=== PATIENT | female | born 1945 | race Two or more races ===

== ENCOUNTER 2017-05-26 22:03 | Emergency (ER) | payer MEDICAID, OTHER ==
[~2017-05-26] VITALS: Ht 160 cm; Wt 73.0 kg
[~2017-05-26 22:03] MED LIST: ASP81EC PO; Atorvastatin Calcium PO; CAR3125T PO; CLOP75TA28 PO; ENA2.5T PO; SPIR25TA88 PO
[2017-05-26] MEDS ORDERED: cloNIDine HCL 0.1 MG TAB ONE (22:12)
[2017-05-26] MEDS ORDERED: cloNIDine HCL 0.1 MG TAB PO ONE (22:30)
[2017-05-26 22:39] LABS: Basophils # (auto) 0.1 uL; Basophils % (auto) 0.8 % (0.0-2.0); Eosinophils # (auto) 0.2 uL; Eosinophils % (auto) 2.1 % (0.0-7.0); Hematocrit 45.7 % (36.0-46.0); Hemoglobin 15.1 g/dL (12.2-16.2); Lymphocytes # (auto) 2.2 uL; Lymphocytes % (auto) 22.4 % (10.0-50.0); Mean Corpuscular Hemoglobin 27.6 pg (28.0-32.0); Mean Corpuscular Volume 83.6 fL (80.0-100.0); Mean Platelet Volume 7.7 fL (6.9-10.8); Monocytes # (auto) 1.1 uL; Monocytes % (auto) 11.2 % (0.0-12.0); Neutrophils # (auto) 6.2 uL; Neutrophils % (auto) 63.5 % (37.0-80.0); Nucleated Red Blood Cells % 0.1 %; Platelet Count (auto) 296 10^3/uL (140-450); Red Cell Distribution Width 13.8 % (11.8-14.3); White Blood Cell 9.7 10^3/uL (4.4-10.8)
[2017-05-26 22:53] LABS: INR 0.97 (0.9-1.15); Partial Thromboplastin Time 25.4 sec (22.64-33.71); Prothrombin Time 10.6 sec (9.37-12.3)
[2017-05-26 22:58] LABS: Albumin 3.2 g/dL (3.4-5.0); BUN/Creatinine Ratio 20.1; Calcium 8.7 mg/dL (8.5-10.1); Magnesium 2.2 mg/dL (1.6-2.6); Potassium 4.4 mmol/L (3.5-5.1)
[2017-05-26 23:03] LABS: Bilirubin, Total 0.4 mg/dL (0.2-1.0); Total Protein 8.5 g/dL (6.4-8.2)
[2017-05-27 05:55] LABS: Urine Bilirubin Negative (Negative); Urine Blood TRACE /uL (Negative); Urine Color Yellow (Yellow); Urine Glucose Normal (Normal); Urine Ketone Negative (Negative); Urine Mucus FEW (None Seen); Urine Nitrite Negative (Negative); Urine RBC 2 /hpf (0 - 4); Urine Squamous Epithelial Cell FEW /hpf (<5); Urine Urobilinogen Normal (Negative)
[2017-05-27] MEDS ORDERED: IOHEXOL 350 MG/ML 100ML IJ ONE (07:52)
[2017-05-27 09:11] VITALS: BP 135/80
== END 2017-05-27 13:20 | disposition home or self-care (01) ==
LOC: ER 22:03
DX: R04.0 Epistaxis (principal); N39.0 Urinary tract infection, site not specified; R42 Dizziness and giddiness; I12.9 Hypertensive chronic kidney disease with stage 1 through stage 4 chronic kidney disease, or unspecified chronic kidney disease; N18.9 Chronic kidney disease, unspecified; I25.10 Atherosclerotic heart disease of native coronary artery without angina pectoris; Z88.6 Allergy status to analgesic agent; Z79.899 Other long term (current) drug therapy
CPT/HCPCS: 36415; 70450; 71275; 80053; 81001; 83735; 84484; 85025; 85379; 85610; 85730; 93005; 99285; Q9967

== ENCOUNTER 2019-04-21 23:30 | Inpatient (IN) | payer MEDICAID ==
[~2019-04-21] VITALS: Ht 162.6 cm; Wt 76.2 kg
[~2019-04-21 23:30] MED LIST changes: -ENA2.5T PO; +ENAL2.5T2 PO
[2019-04-22 00:30] LABS: Basophils # (auto) 0.1 uL; Basophils % (auto) 0.5 % (0.0-2.0); Eosinophils # (auto) 0.1 uL; Eosinophils % (auto) 1.2 % (0.0-7.0); Hematocrit 44.2 % (36.0-46.0); Hemoglobin 14.7 g/dL (12.2-16.2); Lymphocytes # (auto) 1.6 uL; Lymphocytes % (auto) 12.7 % (10.0-50.0); Mean Corpuscular Hemoglobin 27.4 pg (28.0-32.0); Mean Corpuscular Hgb Conc. 33.2 g/dL (32.0-36.0); Mean Corpuscular Volume 82.4 fL (80.0-100.0); Monocytes # (auto) 0.8 uL; Monocytes % (auto) 6.2 % (0.0-12.0); Neutrophils % (auto) 79.4 % (37.0-80.0); Nucleated Red Blood Cells % 0.1 %; Platelet Count (auto) 317 10^3/uL (140-450); Red Blood Cells 5.36 10^6/uL (4.0-5.20); Red Cell Distribution Width 14.4 % (11.8-14.3); White Blood Cell 12.6 10^3/uL (4.4-10.8)
[2019-04-22 00:46] LABS: Albumin 3.1 g/dL (3.4-5.0); BUN/Creatinine Ratio 14.2; Calcium 8.9 mg/dL (8.5-10.1); Potassium 3.8 mmol/L (3.5-5.1)
[2019-04-22 00:48] LABS: Bilirubin, Total 0.2 mg/dL (0.2-1.0); Total Protein 8.4 g/dL (6.4-8.2)
[2019-04-22] MEDS ORDERED: SODIUM CHLORIDE 0.9% 500 ML IV ONE (01:15)
[2019-04-22] MEDS ORDERED: ONDANSETRON HCL 4 MG/2 ML VIAL IV ONE (01:15)
[2019-04-22] MEDS ORDERED: MORPHINE SULFATE 4 MG/ML SYR/VIAL IV ONE (01:15)
[2019-04-22 01:47] LABS: Urine Bacteria FEW /hpf (None Seen); Urine Blood 2+ /uL (Negative); Urine Specific Gravity 1.015 (1.001-1.035); Urine WBC 261 /hpf (0 - 5); Urine WBC Clumps PRESENT /hpf (None Seen)
[2019-04-22 01:55] LABS: INR 0.97 (0.9-1.15); Partial Thromboplastin Time 26.2 sec (23.64-32.05)
[2019-04-22] MEDS ORDERED: PROMETHAZINE HCL 25 MG/ML 1ML IV ONE (04:00)
[2019-04-22] MEDS ORDERED: DEXTROSE (50%) 50ML SYRG IV PRN (06:00)
[2019-04-22] MEDS ORDERED: TEMAZEPAM 15 MG CAP PO PRN (06:00)
[2019-04-22] MEDS ORDERED: ONDANSETRON HCL 4 MG/2 ML VIAL IV PRN (06:00)
[2019-04-22] MEDS ORDERED: cloNIDine HCL 0.1 MG TAB PO PRN (06:00)
[2019-04-22] MEDS ORDERED: MORPHINE SULF INJ 2 MG/ML SYRINGE 1ML IV PRN (06:00)
[2019-04-22 09:30] VITALS: BP 142/91
--- NOTE | 2019-04-22 09:30 | NUR ---
MED/SURG admit MILA FIGUEROA admitted to MED/SURG unit. Patient oriented to LICO ANTUNEZ RN primary RN, unit, room, bed, and unit policies regarding patient care and visiting hours. Pt alert and oriented x4. No s/s of distress or SOB noted. Pt rated pain at 3/10 and denies any need for pain medication at this time. Bed in lowest and locked position with side rails up x2 and call light in reach. Encouraged to call if they need something. All questions and concerns addressed, patient verbalized understanding.
[2019-04-22 10:00] VITALS: BP 162/94
[2019-04-22] MEDS: CLOPIDOGREL BISULFATE 75 MG TAB PO SCH (10:00)
[2019-04-22] MEDS ORDERED: ENALAPRIL MALEATE 2.5 MG TAB PO SCH (10:00)
[2019-04-22] MEDS ORDERED: hydrALAZINE HCL 20 MG/ML VL IV PRN (10:15)
[2019-04-22] MEDS ORDERED: TAMSULOSIN HYDROCHLORIDE 0.4 MG CAP PO ONE (10:15)
--- NOTE | 2019-04-22 10:30 | NUR ---
IV removal RIGHT AC IV DC'd with clean sterile technique, catheter fully intact. Pressure dressing applied to site. Patient tolerated well.
--- NOTE | 2019-04-22 11:30 | NUR ---
IV insertion IV access obtained, via clean sterile technique by inserting 20 gauge catheter at RIGHT WRIST after 2 attempt(s). IV secured properly. No trauma to site. Patient tolerated well.
[2019-04-22] MEDS: ASPirin 81 mg TAB PO SCH (11:35)
[2019-04-22] MEDS: cefTRIAXone 1GM/50ML D5W 50 ML IV SCH (11:35)
[2019-04-22] MEDS: PANTOPRAZOLE 40 MG TAB PO SCH (11:36)
[2019-04-22] MEDS: CARVEDILOL 3.125 MG TAB PO SCH ×2 (11:36→21:23)
[2019-04-22] MEDS: SODIUM CHLORIDE 0.9% 1,000 ML IV SCH ×3 (11:37→23:36)
[2019-04-22 13:00] VITALS: BP 145/80
[2019-04-22] MEDS: ACCU-CHEK COMFORT CURVE STRIP VI SCH ×3 (13:06→23:35)
[2019-04-22] MEDS: InsuLIN REG 1unit/0.01ml Soln (100units/ml) SC SCH ×3 (13:06→23:34)
--- NOTE | 2019-04-22 15:19 | NUR ---
IV Insertion and Removal IV insertion of 20 G to pt's R FA. Clean technique used. Pt tolerated insertion well. IV removal of pt's IV to R hand/wrist removed due to infiltration. Catheter removed fully intact. Pressure applied with gauze for 3 minutes and then wrapped in coban. Pt instructed to keep dressing on for 30 minutes; pt verbalized understanding.
[2019-04-22 17:00] VITALS: BP 133/62
--- NOTE | 2019-04-22 19:30 | NUR ---
ASSUMED CARE, PT. AWAKE, NO C/O PAIN, NOT IN DISTRESS.
[2019-04-22] MEDS: ATORVASTATIN 20 MG TAB PO SCH (21:23)
[2019-04-22 22:00] VITALS: BP 105/55
[2019-04-23 05:00] VITALS: BP 110/63
[2019-04-23] MEDS: InsuLIN REG 1unit/0.01ml Soln (100units/ml) SC SCH ×3 (05:33→18:00)
[2019-04-23] MEDS: ACCU-CHEK COMFORT CURVE STRIP VI SCH ×3 (05:33→18:38)
[2019-04-23] MEDS: SODIUM CHLORIDE 0.9% 1,000 ML IV SCH (06:14)
[2019-04-23 06:32] LABS: Basophils # (auto) 0 uL; Basophils % (auto) 0.1 % (0.0-2.0); Eosinophils # (auto) 0 uL; Eosinophils % (auto) 0.1 % (0.0-7.0); Hematocrit 37.3 % (36.0-46.0); Hemoglobin 12.3 g/dL (12.2-16.2); Lymphocytes % (auto) 4.9 % (10.0-50.0); Mean Corpuscular Hemoglobin 27.3 pg (28.0-32.0); Mean Corpuscular Hgb Conc. 32.9 g/dL (32.0-36.0); Mean Corpuscular Volume 82.9 fL (80.0-100.0); Monocytes # (auto) 1.5 uL; Monocytes % (auto) 7.7 % (0.0-12.0); Neutrophils # (auto) 17.2 uL; Neutrophils % (auto) 87.2 % (37.0-80.0); Platelet Count (auto) 236 10^3/uL (140-450); Red Cell Distribution Width 14.6 % (11.8-14.3); White Blood Cell 19.7 10^3/uL (4.4-10.8)
[2019-04-23 06:49] LABS: BUN/Creatinine Ratio 12.6
[2019-04-23 06:53] LABS: Calcium 7.8 mg/dL (8.5-10.1)
--- NOTE | 2019-04-23 07:34 | NUR ---
Opening Shift Note Assumed care of patient, asleep, arouses to name. No S/S of distress/SOB or pain. Bed in lowest and locked position with side rails up x2 and call light in reach. Instructed on POC and to call for assist PRN, will continue to monitor for changes Q1hr and PRN.
[2019-04-23 09:00] VITALS: BP 114/59
[2019-04-23] MEDS: ASPirin 81 mg TAB PO SCH (09:46)
[2019-04-23] MEDS: PANTOPRAZOLE 40 MG TAB PO SCH (09:46)
[2019-04-23] MEDS: cefTRIAXone 1GM/50ML D5W 50 ML IV SCH (09:46)
[2019-04-23] MEDS: CARVEDILOL 3.125 MG TAB PO SCH ×2 (10:00→21:51)
[2019-04-23] MEDS: CLOPIDOGREL BISULFATE 75 MG TAB PO SCH (10:00)
--- NOTE | 2019-04-23 10:18 | NUR ---
DR. RAMIREZ AT PT BEDSIDE DISCUSSING POC WITH PT. DR. RAMIREZ WANTS THE PATIENT TO FOLLOW UP WITH HIM IN 2 WEEKS.
--- NOTE | 2019-04-23 10:32 | NUR ---
SPOKE TO DR. MYERS. NEW ORDERS RECEIVED, READ BACK AND VERIFIED. ACCORDING TO MD D/Magaly PLAVIX.
--- NOTE | 2019-04-23 10:35 | NUR ---
SPOKE TO DR. RAMIREZ. NEW ORDERS RECEIVED, READ BACK AND VERIFIED.
--- NOTE | 2019-04-23 12:00 | NUR ---
IV insertion IV access obtained, via clean sterile technique by inserting 22 gauge catheter at RIGHT AC after 2 attempt(s). IV secured properly. No trauma to site. Patient tolerated well.
--- NOTE | 2019-04-23 12:00 | NUR ---
IV removal RIGHT FA IV DC'd with clean sterile technique, catheter fully intact. Pressure dressing applied to site. Patient tolerated well.
[2019-04-23 13:00] VITALS: BP 111/57
[2019-04-23] MEDS: SODIUM BICARBONATE 50ML VIAL 50 ML in SOD CHL 0.45% 1,000 ML IV SCH ×3 (14:10→23:56)
[2019-04-23 17:00] VITALS: BP 139/69
[2019-04-23 17:11] LABS: Protein, Urine 76.7 mg/dL (0.0-11.9)
[2019-04-23] MEDS: TAMSULOSIN HYDROCHLORIDE 0.4 MG CAP PO SCH (18:32)
[2019-04-23] MEDS: ACETAMINOPHEN 325 MG TAB PO PRN (18:32)
--- NOTE | 2019-04-23 19:30 | NUR ---
Opening Shift Assumed care of patient, awake and alert. No S/S of distress/SOB or pain. Insructed on POC and to callfor assist PRN, will continue to monitor for changes Q1hr and PRN. Fall and safety precautions in place. Call light within reach.
[2019-04-23] MEDS: ATORVASTATIN 20 MG TAB PO SCH (21:52)
[2019-04-23 22:00] VITALS: BP 123/58
[2019-04-24] MEDS: ACCU-CHEK COMFORT CURVE STRIP VI SCH ×5 (00:20→23:54)
[2019-04-24] MEDS: InsuLIN REG 1unit/0.01ml Soln (100units/ml) SC SCH ×5 (05:33→23:54)
[2019-04-24 05:47] VITALS: BP 113/61
[2019-04-24 06:15] LABS: Basophils # (auto) 0 uL; Basophils % (auto) 0.1 % (0.0-2.0); Eosinophils # (auto) 0 uL; Eosinophils % (auto) 0.1 % (0.0-7.0); Hematocrit 35.6 % (36.0-46.0); Lymphocytes # (auto) 0.4 uL; Lymphocytes % (auto) 1.7 % (10.0-50.0); Mean Corpuscular Hemoglobin 27.9 pg (28.0-32.0); Mean Corpuscular Hgb Conc. 33.8 g/dL (32.0-36.0); Mean Corpuscular Volume 82.8 fL (80.0-100.0); Monocytes # (auto) 1.2 uL; Monocytes % (auto) 5.1 % (0.0-12.0); Neutrophils # (auto) 22.1 uL; Platelet Count (auto) 192 10^3/uL (140-450); Red Cell Distribution Width 14.8 % (11.8-14.3); White Blood Cell 23.7 10^3/uL (4.4-10.8)
[2019-04-24 06:42] LABS: Calcium 7.4 mg/dL (8.5-10.1); Magnesium 1.7 mg/dL (1.6-2.6); Potassium 3.7 mmol/L (3.5-5.1); Uric Acid 7.5 mg/dL (2.6-6.0)
[2019-04-24 06:49] LABS: BUN/Creatinine Ratio 13.6; Bilirubin, Total 0.7 mg/dL (0.2-1.0); Total Protein 6.1 g/dL (6.4-8.2)
[2019-04-24 09:10] VITALS: BP 105/49
[2019-04-24] MEDS: CARVEDILOL 3.125 MG TAB PO SCH ×2 (10:18→22:05)
[2019-04-24] MEDS: ASPirin 81 mg TAB PO SCH (10:18)
[2019-04-24] MEDS: PANTOPRAZOLE 40 MG TAB PO SCH (10:18)
[2019-04-24] MEDS: cefTRIAXone 1GM/50ML D5W 50 ML IV SCH (10:18)
[2019-04-24] MEDS: SODIUM BICARBONATE 50ML VIAL 50 ML in SOD CHL 0.45% 1,000 ML IV SCH ×3 (10:18→20:11)
[2019-04-24 13:57] VITALS: BP 88/51
--- NOTE | 2019-04-24 14:59 | NUR ---
Nutrition Assessment Notes please see attached link for complete assessment Est. Needs ABW [id number] kcal (23-25 kcal/kgBW), 53-67 gms pro (0.8-1.0 gms/kgBW r/t elev RFT). Will continue to monitor pertinent labs and reassess nutrient need prn Addendum: 04/24/19 at [address] Amended: Links added.
[2019-04-24 17:25] VITALS: BP 125/60
[2019-04-24] MEDS: TAMSULOSIN HYDROCHLORIDE 0.4 MG CAP PO SCH (18:12)
--- NOTE | 2019-04-24 19:30 | NUR ---
Opening Shift Assumed care of patient, awake and alert. No S/S of distress/SOB or pain. Insructed on POC and to callfor assist PRN, will continue to monitor for changes Q1hr and PRN. Fall and safety precautions in place. Call light within reach. Hat placed in toilet and educated patient about collecting urine for strict intake and output. Patient verbalized understanding and agreement. Will continue to monitor
--- NOTE | 2019-04-24 20:00 | NUR ---
IV insertion IV access obtained, via clean sterile technique by inserting 20 gauge catheter at RFA after 1 attempt. IV secured properly. No trauma to site. Patient tolerated well. IV removal IV DC'd with clean sterile technique, catheter fully intact. Pressure dressing applied to site. Patient tolerated well. NOTE: RAC 22g removed due to leaking
[2019-04-24 22:00] VITALS: BP 147/71
[2019-04-24] MEDS: ATORVASTATIN 20 MG TAB PO SCH (22:05)
[2019-04-24] MEDS: ACETAMINOPHEN 325 MG TAB PO PRN (22:19)
[2019-04-25] VITALS (7 sets, daily range): BP systolic 131–184; BP diastolic 60–112
[2019-04-25] MEDS: SODIUM BICARBONATE 50ML VIAL 50 ML in SOD CHL 0.45% 1,000 ML IV SCH ×3 (04:15→21:32)
[2019-04-25 05:34] LABS: Calcium 7.5 mg/dL (8.5-10.1); Potassium 3.4 mmol/L (3.5-5.1)
[2019-04-25 05:36] LABS: BUN/Creatinine Ratio 15.7
[2019-04-25 05:38] LABS: Bilirubin, Total 0.2 mg/dL (0.2-1.0); Total Protein 5.9 g/dL (6.4-8.2)
[2019-04-25] MEDS: InsuLIN REG 1unit/0.01ml Soln (100units/ml) SC SCH ×3 (06:00→18:00)
[2019-04-25] MEDS: ACCU-CHEK COMFORT CURVE STRIP VI SCH ×3 (06:16→18:23)
--- NOTE | 2019-04-25 07:05 | NUR ---
Opening Shift Note Assumed care of patient, awake and alert. No S/S of distress or SOB. Instructed on POC and to call for assist PRN, will continue to monitor for changes Q1hr and PRN. Bed set in lowest locked position with side rails raised x2, and call light within reach.
[2019-04-25] MEDS: cefTRIAXone 1GM/50ML D5W 50 ML IV SCH (08:54)
[2019-04-25] MEDS: PANTOPRAZOLE 40 MG TAB PO SCH (09:00)
[2019-04-25] MEDS: CARVEDILOL 3.125 MG TAB PO SCH ×2 (09:02→21:32)
[2019-04-25 09:47] LABS: Urine Bacteria FEW /hpf (None Seen); Urine Blood 2+ /uL (Negative); Urine Specific Gravity 1.006 (1.001-1.035); Urine WBC 482 /hpf (0 - 5)
[2019-04-25] MEDS: ASPirin 81 mg TAB PO SCH (10:00)
[2019-04-25] MEDS ORDERED: POTASSIUM EFFERVESENT TAB 25 MEQ PO ONE (10:45)
[2019-04-25] MEDS: TAMSULOSIN HYDROCHLORIDE 0.4 MG CAP PO SCH (18:23)
--- NOTE | 2019-04-25 20:30 | NUR ---
IV insertion IV access obtained, via clean sterile technique by inserting 20 gauge catheter at right wrist after first attempt. IV secured properly. No trauma to site. Patient tolerated well. IV removal IV DC'd with clean sterile technique, catheter fully intact. Pressure dressing applied to site. Patient tolerated well. NOTE: RFA 20g removed due to infiltration
--- NOTE | 2019-04-25 21:30 | NUR ---
TEMP Patient shaking and stating she was cold, even though she was covered with multiple blankets. Patient also complaining of cramp-like pain in upper thighs 04/13. Vitals checked at this time; temp 102.5F oral, HR 109, RR 23, O2 93% on 2L NC, BP 184/91. Cooling measures applied and patient medicated with PRN medication (see emar). Educated patient on importance of cooling measures for temp, patient verbalized understanding and agreement. Will recheck approximately 1 hour.
[2019-04-25] MEDS: ATORVASTATIN 20 MG TAB PO SCH (21:32)
[2019-04-25] MEDS: ACETAMINOPHEN 325 MG TAB PO PRN (21:32)
--- NOTE | 2019-04-25 22:30 | NUR ---
TEMP RECHECK Rechecked patient's vitals at this time after medication administration (see emar). Temp 100.6F oral, HR 107, RR 18, O2 93% on 2L NC, BP 147/61. Patient denies cramp-like pain in bilateral upper legs. Educated patient that cooling measures will be continued until temp is WNL. Patient verbalized understanding and agreement. Will continue to monitor
--- NOTE | 2019-04-25 23:30 | NUR ---
TEMP RECHECK Rechecked patient's temp; 98.4F oral. Cooling measures discontinued. No signs of distress noted. Will continue to monitor
--- NOTE | 2019-04-26 | NUR ---
IV FLUIDS Patient's right arm noted to have 3+ edema. IV fluids decreased from MD's ordered rate of 150ml/hr to 75ml/hr. Will continue to monitor
[2019-04-26 05:40] VITALS: BP 117/59
[2019-04-26] MEDS: ACETAMINOPHEN 325 MG TAB PO PRN ×2 (05:40→22:20)
[2019-04-26] MEDS: InsuLIN REG 1unit/0.01ml Soln (100units/ml) SC SCH ×5 (05:58→23:52)
[2019-04-26] MEDS: ACCU-CHEK COMFORT CURVE STRIP VI SCH ×4 (05:58→23:52)
[2019-04-26 06:17] LABS: Basophils # (auto) 0 uL; Basophils % (auto) 0.2 % (0.0-2.0); Eosinophils # (auto) 0.1 uL; Eosinophils % (auto) 0.6 % (0.0-7.0); Hematocrit 34.5 % (36.0-46.0); Hemoglobin 11.4 g/dL (12.2-16.2); Lymphocytes # (auto) 0.8 uL; Lymphocytes % (auto) 4.3 % (10.0-50.0); Mean Corpuscular Hemoglobin 27.5 pg (28.0-32.0); Mean Corpuscular Hgb Conc. 33.1 g/dL (32.0-36.0); Mean Corpuscular Volume 83.2 fL (80.0-100.0); Monocytes # (auto) 1.3 uL; Monocytes % (auto) 7.3 % (0.0-12.0); Neutrophils # (auto) 15.8 uL; Neutrophils % (auto) 87.6 % (37.0-80.0); Nucleated Red Blood Cells % 0.1 %; Platelet Count (auto) 204 10^3/uL (140-450); Red Blood Cells 4.14 10^6/uL (4.0-5.20); Red Cell Distribution Width 14.8 % (11.8-14.3); White Blood Cell 18.1 10^3/uL (4.4-10.8)
[2019-04-26 06:19] LABS: Potassium 4.2 mmol/L (3.5-5.1)
[2019-04-26 06:27] LABS: Albumin 1.9 g/dL (3.4-5.0); BUN/Creatinine Ratio 17.1; Calcium 7.4 mg/dL (8.5-10.1)
[2019-04-26 06:29] LABS: Bilirubin, Total 0.6 mg/dL (0.2-1.0); Total Protein 5.9 g/dL (6.4-8.2)
--- NOTE | 2019-04-26 07:30 | NUR ---
RECEIVED REPORT FROM NIGHT NURSE. PATIENT RESTING IN BED, NO DISTRESS NOTED. WILL CONTINUE TO MONITOR.
[2019-04-26 08:00] VITALS: BP 143/69
[2019-04-26] MEDS: SODIUM BICARBONATE 50ML VIAL 50 ML in SOD CHL 0.45% 1,000 ML IV SCH ×3 (08:39→22:43)
[2019-04-26 09:00] VITALS: BP 143/69
[2019-04-26] MEDS: CARVEDILOL 3.125 MG TAB PO SCH ×2 (09:54→22:13)
[2019-04-26] MEDS: PANTOPRAZOLE 40 MG TAB PO SCH (09:54)
[2019-04-26] MEDS: ASPirin 81 mg TAB PO SCH (10:00)
[2019-04-26] MEDS: cefTRIAXone 1GM/50ML D5W 50 ML IV SCH (10:01)
[2019-04-26 13:00] VITALS: BP 139/69
--- NOTE | 2019-04-26 15:56 | NUR ---
PATIENT TAKEN DOWN TO COLLETER FOR NEPHROSTOMY TUBE PLACEMENT.
[2019-04-26] MEDS ORDERED: LIDOCAINE 2%HCL (LOCAL ANESTH.) INJ 20ML MDV ONE ×2 (17:59→18:20)
[2019-04-26] MEDS ORDERED: IOHEXOL 350 MG/ML 100ML IJ ONE (17:59)
[2019-04-26] MEDS: TAMSULOSIN HYDROCHLORIDE 0.4 MG CAP PO SCH (18:00)
[2019-04-26] MEDS ORDERED: MIDAZOLAM HCL 1MG/1ML-2 ML VIAL ONE (18:04)
[2019-04-26] MEDS ORDERED: fentaNYL CITRATE 100 MCG/2 ML VL ONE (18:04)
[2019-04-26 19:45] VITALS: BP 153/70
--- NOTE | 2019-04-26 19:45 | NUR ---
ASSUMED CARE, PT. GOT BACK FROM RADIOLOGY, PT. S/P RT. NEPHROSTOMY TUBE PLACEMENT, NO C/O PAIN, V/S STABLE, ADVISED PT. NPO AFTER MN, FOR SURGERY IN AM, NOT IN DISTRESS.
[2019-04-26 21:39] VITALS: BP 148/69
[2019-04-26] MEDS: ATORVASTATIN 20 MG TAB PO SCH (22:13)
[2019-04-27] MEDS: InsuLIN REG 1unit/0.01ml Soln (100units/ml) SC SCH ×2 (05:20→12:00)
[2019-04-27] MEDS: ACCU-CHEK COMFORT CURVE STRIP VI SCH ×2 (05:21→15:09)
[2019-04-27 05:36] VITALS: BP 142/73
[2019-04-27 05:58] LABS: Basophils # (auto) 0 uL; Basophils % (auto) 0.4 % (0.0-2.0); Eosinophils # (auto) 0.2 uL; Eosinophils % (auto) 1.4 % (0.0-7.0); Hematocrit 35.9 % (36.0-46.0); Hemoglobin 11.9 g/dL (12.2-16.2); Lymphocytes # (auto) 1.2 uL; Lymphocytes % (auto) 9.9 % (10.0-50.0); Mean Corpuscular Hemoglobin 27.4 pg (28.0-32.0); Mean Corpuscular Hgb Conc. 33.2 g/dL (32.0-36.0); Mean Corpuscular Volume 82.6 fL (80.0-100.0); Monocytes # (auto) 1.3 uL; Monocytes % (auto) 11.3 % (0.0-12.0); Nucleated Red Blood Cells % 0.1 %; Platelet Count (auto) 221 10^3/uL (140-450); Red Blood Cells 4.35 10^6/uL (4.0-5.20); Red Cell Distribution Width 14.9 % (11.8-14.3); White Blood Cell 11.6 10^3/uL (4.4-10.8)
[2019-04-27 06:13] LABS: Calcium 7.9 mg/dL (8.5-10.1); Magnesium 2.2 mg/dL (1.6-2.6)
[2019-04-27 06:15] LABS: BUN/Creatinine Ratio 18.7
--- NOTE | 2019-04-27 06:55 | NUR ---
pt. brought down to pre-op, stable condition.
[2019-04-27 08:00] VITALS: BP 144/70
--- NOTE | 2019-04-27 08:00 | NUR ---
PATIENT BACK IN ROOM, PROCEDURE CANCELLED.
--- NOTE | 2019-04-27 08:30 | NUR ---
SPOKE WITH DOCTOR MYERS, ORDERS RECEIVED, WILL PLACE AND CARRY OUT.
[2019-04-27 09:00] VITALS: BP 113/76
[2019-04-27] MEDS: cefTRIAXone 1GM/50ML D5W 50 ML IV SCH (09:00)
--- NOTE | 2019-04-27 09:21 | NUR ---
DOCTOR MYERS AT BEDSIDE.
--- NOTE | 2019-04-27 09:40 | NUR ---
assessment Patient is a 73 year old female who is alert and oriented. Prior to admission patient lived home with her sister and functioned independently. Patient informed me she is able to care for her own ADLs. Per patient she will return home to her prior living arrangements post discharge and family will transport her home. Patient informed me she has a fww for home use. Patient feels safe returning home on discharge. Patient may need home health on discharge. I informed patient she has a right to speak to a older adult social work specialist regarding all care. I informed patient she has a right to participate in any and all discharge planning. Patient has a POA and advanced directive. Patient verbalized understanding and agreed to discharge plan. Addendum: 04/27/19 at 0942 by Reny MARMOLEJO Amended: Links added.
[2019-04-27] MEDS ORDERED: LEVOFLOXACIN 500 MG TAB PO SCH (10:00)
[2019-04-27] MEDS: ASPirin 81 mg TAB PO SCH (10:14)
[2019-04-27] MEDS: PANTOPRAZOLE 40 MG TAB PO SCH (10:17)
[2019-04-27] MEDS: CARVEDILOL 3.125 MG TAB PO SCH (10:20)
--- NOTE | 2019-04-27 14:21 | NUR ---
Discharge planning per consult,patient has orders to dc with [facility] for nephrostomy care. Referral was sent to [facility], placed a follow up call, spoke with Alma Rosa and was advised that they will accept this case and start of care will be within 24-48 hours upon discharge. Nurse Acosta was advised. Addendum: 04/27/19 at 1426 by RASHAUN BETHANY SS Amended: Links added. Addendum: 04/27/19 at 1426 by RASHAUN BETHANY SS Auth obtained from [id number]
[2019-04-27] MEDS ORDERED: OPTISON 3ml Vial for INJ IV ONE (14:30)
--- NOTE | 2019-04-27 16:57 | NUR ---
SPOKE WITH DOCTOR GAIL VIRGEN TO BE DISCHARGED HOME.
[2019-04-27 17:00] VITALS: BP 143/71
[2019-04-28] MEDS ORDERED: LEVOFLOXACIN 250 MG TAB PO SCH ×2 (10:00)
== END 2019-04-27 17:50 | disposition home health service (06) | DRG 469 ==
LOC: ER 23:33 → OVERFLOW 23:34 → EAST 04-22 08:39 → WEST WING 04-22 09:23
PROVIDERS: ADMIT Nurse Practitioner; ATTEND Internal Medicine
PROC: BT1D1ZZ Fluoroscopy of Right Kidney, Ureter and Bladder using Low Osmolar Contrast (ICD-10-PCS; principal; 2019-04-26)
PROC: 0T9030Z Drainage of Right Kidney with Drainage Device, Percutaneous Approach (ICD-10-PCS; 2019-04-26)
PROC: BT41ZZZ Ultrasonography of Right Kidney (ICD-10-PCS; 2019-04-26)
DX: N17.9 Acute kidney failure, unspecified (principal); E87.2 Acidosis; E44.0 Moderate protein-calorie malnutrition; E11.22 Type 2 diabetes mellitus with diabetic chronic kidney disease; N13.6 Pyonephrosis; N28.1 Cyst of kidney, acquired; N20.1 Calculus of ureter; N18.3 Chronic kidney disease, stage 3 (moderate); I25.10 Atherosclerotic heart disease of native coronary artery without angina pectoris; E79.0 Hyperuricemia without signs of inflammatory arthritis and tophaceous disease; E78.5 Hyperlipidemia, unspecified; I12.9 Hypertensive chronic kidney disease with stage 1 through stage 4 chronic kidney disease, or unspecified chronic kidney disease; I25.5 Ischemic cardiomyopathy; I25.2 Old myocardial infarction; Z83.3 Family history of diabetes mellitus; Z87.440 Personal history of urinary (tract) infections; Z68.28 Body mass index [BMI] 28.0-28.9, adult; Z88.5 Allergy status to narcotic agent; Z95.5 Presence of coronary angioplasty implant and graft
CPT/HCPCS: 36415; 50430; 71045; 74018; 74176; 76775; 76942; 80048; 80053; 81001; 82570; 82962; 83036; 83735; 84100; 84156; 84300; 84550; 85025; 85610; 85730; 87086; 87088; 87186; 93306; 96361; 96374; 96375; 99152; 99153; C1729; G0378; J0696; J1815; J2250; J2405; Q9956

== ENCOUNTER → 2019-06-13 | Outpatient (CLI) | payer MEDICAID ==
[~2019-06-13] VITALS: Ht 152.4 cm; Wt 69.4 kg
[~2019-06-13] MED LIST changes: +ADENOSINE 58 MG in GIVE UN-DILUTED 0 ML IV ONE; +ADENOSINE 90 MG/30 ML INJ IV ONE; -CLOP75TA28 PO; -ENAL2.5T2 PO
== END | disposition home or self-care (01) ==
LOC: Rad HDHVI 09:09
PROVIDERS: ATTEND Internal Medicine Cardiovascular Disease
DX: I51.7 Cardiomegaly (principal); M54.89 Other dorsalgia; R07.9 Chest pain, unspecified; I25.2 Old myocardial infarction; I10 Essential (primary) hypertension; E78.00 Pure hypercholesterolemia, unspecified; E11.9 Type 2 diabetes mellitus without complications
CPT/HCPCS: 78452; 93005; 93306; 96374; 96375; A9500; J0153

== ENCOUNTER → 2020-11-26 | Outpatient (CLI) | payer MEDICAID ==
[~2020-11-26] MED LIST changes: -ADENOSINE 58 MG in GIVE UN-DILUTED 0 ML IV ONE; -ADENOSINE 90 MG/30 ML INJ IV ONE; -ASP81EC PO; +ASPI-394 PO; +SPIR25TA PO; -SPIR25TA88 PO
== END | disposition home or self-care (01) ==
LOC: Rad HDHVI 12:58
PROVIDERS: ATTEND Internal Medicine Cardiovascular Disease
DX: I35.8 Other nonrheumatic aortic valve disorders (principal); I51.7 Cardiomegaly; R07.89 Other chest pain
CPT/HCPCS: 93306

== ENCOUNTER → 2020-12-10 | Outpatient (CLI) | payer MEDICAID ==
[~2020-12-10] VITALS: Ht 149.9 cm; Wt 60.8 kg
[~2020-12-10] MED LIST changes: +ADENOSINE 51 MG in GIVE UN-DILUTED 0 ML IV ONE; +ADENOSINE 90 MG/30 ML INJ IV ONE
== END | disposition home or self-care (01) ==
LOC: Rad HDHVI 12:40
PROVIDERS: ATTEND Internal Medicine Cardiovascular Disease
DX: I11.0 Hypertensive heart disease with heart failure (principal); I50.23 Acute on chronic systolic (congestive) heart failure; E78.5 Hyperlipidemia, unspecified; R06.02 Shortness of breath; I42.0 Dilated cardiomyopathy
CPT/HCPCS: 78452; 93005; 96374; 96375; A9500; J0153

== ENCOUNTER → 2021-01-17 | Outpatient (CLI) | payer MEDICAID ==
[~2021-01-17] MED LIST changes: -ADENOSINE 51 MG in GIVE UN-DILUTED 0 ML IV ONE; -ADENOSINE 90 MG/30 ML INJ IV ONE
== END | disposition home or self-care (01) ==
LOC: Rad HDHVI 08:46
PROVIDERS: ATTEND Internal Medicine Cardiovascular Disease
DX: I10 Essential (primary) hypertension (principal); E78.5 Hyperlipidemia, unspecified
CPT/HCPCS: 93880

== ENCOUNTER → 2021-02-17 | Outpatient (CLI) | payer MEDICAID ==
[~2021-02-17] MED LIST changes: +CHOL20007 PO; +HYDR25TA4 PO; +SACU1TAB PO
[2021-02-17 08:32] VITALS: BP 128/72
[2021-02-17 08:44] VITALS: BP 136/77
[2021-02-17 11:55] LABS: Basophils # (auto) 0.1 10 ^3/uL (0-0.2); Eosinophils # (auto) 0.3 10 ^3/uL (0-0.8); Mean Corpuscular Volume 81.3 fL (80.0-100.0)
[2021-02-17 11:58] LABS: Basophils % (auto) 0.6 % (0.0-2.0); Eosinophils % (auto) 3.3 % (0.0-7.0); Hematocrit 44.8 % (36.0-46.0); Lymphocytes # (auto) 2.3 10 ^3/uL (0.4-5.4); Lymphocytes % (auto) 28.4 % (10.0-50.0); Mean Corpuscular Hemoglobin 27.2 pg (28.0-32.0); Mean Corpuscular Hgb Conc. 33.5 g/dL (32.0-36.0); Monocytes # (auto) 0.6 10 ^3/uL (0-1.3); Monocytes % (auto) 7.6 % (0.0-12.0); Neutrophils % (auto) 60.1 % (37.0-80.0); Nucleated Red Blood Cells % 0.1 %; Red Blood Cells 5.52 10^6/uL (4.0-5.20); Red Cell Distribution Width 14.9 % (11.8-14.3); White Blood Cell 8.2 10^3/uL (4.4-10.8)
[2021-02-17 12:05] LABS: Calcium 9.5 mg/dL (8.5-10.1); Potassium 3.7 mmol/L (3.5-5.1)
[2021-02-17 12:07] LABS: BUN/Creatinine Ratio 15.2; INR 1.02 (0.9-1.15); Partial Thromboplastin Time 25.9 sec (23.6-33.0)
== END | disposition home or self-care (01) ==
LOC: Rad HDHVI 08:16
PROVIDERS: ATTEND Internal Medicine Cardiovascular Disease
DX: Z01.812 Encounter for preprocedural laboratory examination (principal); I70.0 Atherosclerosis of aorta; M47.814 Spondylosis without myelopathy or radiculopathy, thoracic region; I11.0 Hypertensive heart disease with heart failure; I50.9 Heart failure, unspecified; R06.02 Shortness of breath
CPT/HCPCS: 36415; 71046; 80048; 85025; 85610; 85730; 93005; G0463

== ENCOUNTER 2021-02-20 06:40 | Day surgery (SDC) | payer MEDICAID ==
[~2021-02-20] VITALS: Ht 154.9 cm; Wt 60.8 kg
[~2021-02-20 06:40] MED LIST changes: -CAR3125T PO; -SPIR25TA PO
[2021-02-20] MEDS ORDERED: ANGIOMAX 250 MG VIAL IV ONE (07:54)
[2021-02-20] MEDS ORDERED: HEPARIN SODIUM (PORCINE) 5000 UNITS/ML 1ML VIAL ONE (07:54)
[2021-02-20] MEDS ORDERED: fentaNYL CITRATE 100 MCG/2 ML VL ONE (07:55)
[2021-02-20] MEDS ORDERED: MIDAZOLAM HCL 2MG/2ML 2ml VIAL (1mg/ml) ONE (07:55)
[2021-02-20] MEDS ORDERED: SODIUM CHL 0.9% 50 ML ONE (07:56)
[2021-02-20] MEDS ORDERED: LIDOCAINE 2%HCL (LOCAL ANESTH.) INJ 20ML MDV ONE (08:02)
[2021-02-20] MEDS ORDERED: CLOPIDOGREL 300 MG TAB ONE (09:44)
[2021-02-21] MEDS ORDERED: CLOPIDOGREL BISULFATE 75 MG TAB PO SCH (10:00)
== END 2021-02-20 12:23 | disposition home or self-care (01) ==
LOC: CATH 06:40
PROVIDERS: ATTEND Internal Medicine Cardiovascular Disease
DX: I25.10 Atherosclerotic heart disease of native coronary artery without angina pectoris (principal); E78.5 Hyperlipidemia, unspecified; E11.40 Type 2 diabetes mellitus with diabetic neuropathy, unspecified; N19 Unspecified kidney failure; I11.0 Hypertensive heart disease with heart failure; Z87.891 Personal history of nicotine dependence; Z79.82 Long term (current) use of aspirin; Z79.899 Other long term (current) drug therapy; Z88.5 Allergy status to narcotic agent; Z20.822 Contact with and (suspected) exposure to COVID-19
CPT/HCPCS: 92920; 92921; 93454; C1725; C1726; C1760; C1769; C1887; C1894; J0583; J1644; J2250; J3010; J7030; U0003; 99152; 99153

== ENCOUNTER → 2021-04-07 | Outpatient (CLI) | payer MEDICARE, MEDICAID ==
[~2021-04-07] MED LIST changes: +AMLO-489 PO; +ATOR10TA52 PO
[2021-04-07 08:15] VITALS: BP 109/53
[2021-04-07 08:35] VITALS: BP 101/49
[2021-04-07 10:34] LABS: BUN/Creatinine Ratio 25.6; Calcium 9.1 mg/dL (8.5-10.1)
[2021-04-07 10:36] LABS: Basophils # (auto) 0 10 ^3/uL (0-0.2); Basophils % (auto) 0.5 % (0.0-2.0); Eosinophils # (auto) 0.2 10 ^3/uL (0-0.8); Eosinophils % (auto) 1.8 % (0.0-7.0); Hematocrit 37.6 % (36.0-46.0); Hemoglobin 12.4 g/dL (12.2-16.2); Lymphocytes # (auto) 1.9 10 ^3/uL (0.4-5.4); Lymphocytes % (auto) 18.2 % (10.0-50.0); Mean Corpuscular Hemoglobin 27.1 pg (28.0-32.0); Mean Corpuscular Hgb Conc. 33.1 g/dL (32.0-36.0); Mean Corpuscular Volume 81.9 fL (80.0-100.0); Monocytes # (auto) 0.9 10 ^3/uL (0-1.3); Monocytes % (auto) 8.9 % (0.0-12.0); Neutrophils # (auto) 7.4 10 ^3/uL (1.6-8.6); Neutrophils % (auto) 70.6 % (37.0-80.0); Red Blood Cells 4.59 10^6/uL (4.0-5.20); Red Cell Distribution Width 14.9 % (11.8-14.3); White Blood Cell 10.5 10^3/uL (4.4-10.8)
[2021-04-07 10:49] LABS: INR 1.04 (0.9-1.15); Partial Thromboplastin Time 27.9 sec (23.6-33.0)
== END | disposition home or self-care (01) ==
LOC: Rad HDHVI 07:56
PROVIDERS: ATTEND Internal Medicine Cardiovascular Disease
DX: Z01.812 Encounter for preprocedural laboratory examination (principal); I11.0 Hypertensive heart disease with heart failure; I50.9 Heart failure, unspecified; I45.10 Unspecified right bundle-branch block; I44.4 Left anterior fascicular block
CPT/HCPCS: 36415; 71046; 80048; 85025; 85610; 85730; 93005; G0463

== ENCOUNTER 2021-04-10 06:54 | Day surgery (SDC) | payer MEDICARE, MEDICAID ==
[2021-04-10] VITALS (7 sets, daily range): BP systolic 129–157; BP diastolic 71–95
[~2021-04-10] VITALS: Ht 154.9 cm; Wt 64.9 kg
[~2021-04-10 06:54] MED LIST changes: -Atorvastatin Calcium PO
[2021-04-10] MEDS ORDERED: LIDOCAINE 2%HCL (LOCAL ANESTH.) INJ 20ML MDV ONE (09:13)
[2021-04-10] MEDS ORDERED: VANCOMYCIN HCL 1000 MG VL ONE (09:17)
[2021-04-10] MEDS ORDERED: fentaNYL CITRATE 100 MCG/2 ML VL ONE (09:18)
[2021-04-10] MEDS ORDERED: VANCOMYCIN 1GM/250ML 250 ML IV ONE (09:18)
[2021-04-10] MEDS ORDERED: MIDAZOLAM HCL 2MG/2ML 2ml VIAL (1mg/ml) ONE (09:18)
[2021-04-10] MEDS ORDERED: IOHEXOL 350 MG/ML 100ML IJ ONE (10:00)
[2021-04-10] MEDS ORDERED: HYDROmorphone HCL 2 MG/ML VL ONE (10:16)
[2021-04-10] MEDS ORDERED: ATROPINE SULF 1 MG/10ml SYR ONE (10:23)
== END 2021-04-10 13:25 | disposition home or self-care (01) ==
LOC: CATH 06:54
PROVIDERS: ATTEND Internal Medicine Cardiovascular Disease
DX: I48.91 Unspecified atrial fibrillation (principal); I13.2 Hypertensive heart and chronic kidney disease with heart failure and with stage 5 chronic kidney disease, or end stage renal disease; E78.5 Hyperlipidemia, unspecified; I25.2 Old myocardial infarction; E11.40 Type 2 diabetes mellitus with diabetic neuropathy, unspecified; E11.22 Type 2 diabetes mellitus with diabetic chronic kidney disease; N18.6 End stage renal disease; Z20.822 Contact with and (suspected) exposure to COVID-19; Z88.5 Allergy status to narcotic agent; Z79.82 Long term (current) use of aspirin; Z79.899 Other long term (current) drug therapy
CPT/HCPCS: 33208; 71045; 93005; C1769; C1882; C1887; C1892; C1895; C1898; C9803; J1170; J2250; J3010; J3370; J7030; Q9967; U0003; 99152; 99153

== ENCOUNTER → 2022-07-09 | Outpatient (CLI) | payer MEDICAID ==
[~2022-07-09] VITALS: Ht 149.9 cm; Wt 66.7 kg
[~2022-07-09] MED LIST changes: +ADENOSINE 56 MG in GIVE UN-DILUTED 0 ML IV ONE; +ADENOSINE 90 MG/30 ML INJ IV ONE
== END | disposition home or self-care (01) ==
LOC: Rad HDHVI 08:09
PROVIDERS: ATTEND Internal Medicine Cardiovascular Disease
DX: I25.10 Atherosclerotic heart disease of native coronary artery without angina pectoris (principal); E11.9 Type 2 diabetes mellitus without complications; I11.0 Hypertensive heart disease with heart failure; I50.43 Acute on chronic combined systolic (congestive) and diastolic (congestive) heart failure; R00.2 Palpitations; I42.0 Dilated cardiomyopathy; Z95.810 Presence of automatic (implantable) cardiac defibrillator; Z82.49 Family history of ischemic heart disease and other diseases of the circulatory system; Z79.899 Other long term (current) drug therapy
CPT/HCPCS: 78452; 93005; 96374; 96375; A9500; J0153

== ENCOUNTER → 2022-08-06 | Outpatient (CLI) | payer MEDICAID ==
[~2022-08-06] MED LIST changes: -ADENOSINE 56 MG in GIVE UN-DILUTED 0 ML IV ONE; -ADENOSINE 90 MG/30 ML INJ IV ONE
== END | disposition home or self-care (01) ==
LOC: Rad HDHVI 08:13
PROVIDERS: ATTEND Internal Medicine Cardiovascular Disease
DX: I51.7 Cardiomegaly (principal); R00.2 Palpitations
CPT/HCPCS: 93306

== ENCOUNTER → 2023-11-05 | Outpatient (CLI) | payer MEDICAID ==
[~2023-11-05] VITALS: Ht 149.9 cm; Wt 67.1 kg
[~2023-11-05] MED LIST changes: +ADENOSINE 56 MG in GIVE UN-DILUTED 0 ML IV ONE; +ADENOSINE 90 MG/30 ML INJ IV ONE; -AMLO-489 PO; +AMLO1TAB22 PO; +CLIN-203 PO
== END | disposition home or self-care (01) ==
LOC: Rad HDHVI 08:45
PROVIDERS: ATTEND Internal Medicine Cardiovascular Disease
DX: I11.0 Hypertensive heart disease with heart failure (principal); I50.43 Acute on chronic combined systolic (congestive) and diastolic (congestive) heart failure; I25.5 Ischemic cardiomyopathy; E11.42 Type 2 diabetes mellitus with diabetic polyneuropathy; E78.00 Pure hypercholesterolemia, unspecified; Z82.49 Family history of ischemic heart disease and other diseases of the circulatory system; Z95.0 Presence of cardiac pacemaker
CPT/HCPCS: 78452; 93005; 96374; 96375; A9500; J0153

== ENCOUNTER 2023-11-08 13:25 | Emergency (ER) | payer OTHER, MEDICAID ==
[~2023-11-08] VITALS: Ht 165.1 cm; Wt 67.4 kg
[~2023-11-08 13:25] MED LIST changes: -ADENOSINE 56 MG in GIVE UN-DILUTED 0 ML IV ONE; -ADENOSINE 90 MG/30 ML INJ IV ONE; -CLIN-203 PO
[2023-11-08] MEDS ORDERED: cefTRIAXone SOD 500 MG VL IM ONE (17:30)
[2023-11-08] MEDS ORDERED: CLIN-203 PO (18:09)
[2023-11-08] MEDS: TETANUS-DIPTH-ACEL PERTUSSIS 0.5ML SYR Tdap IM ONE (18:39)
[2023-11-08 19:27] VITALS: BP 129/65; PULSE 87; RESP 18; TEMP 97.2; O2SAT 95
[2023-11-08] MEDS: cefTRIAXone 2GM/50ML D5W 50 ML IV ONE (19:31)
[2023-11-08] MEDS: PIPERACILLIN-TAZOB 3.375GM 100 ML IV ONE (20:31)
== END 2023-11-08 22:22 | disposition home or self-care (01) ==
LOC: ER 13:25
DX: S62.305A Unspecified fracture of fourth metacarpal bone, left hand, initial encounter for closed fracture (principal); I12.9 Hypertensive chronic kidney disease with stage 1 through stage 4 chronic kidney disease, or unspecified chronic kidney disease; N18.9 Chronic kidney disease, unspecified; I25.10 Atherosclerotic heart disease of native coronary artery without angina pectoris; Z88.8 Allergy status to other drugs, medicaments and biological substances; Z87.891 Personal history of nicotine dependence; Z87.440 Personal history of urinary (tract) infections; Z79.899 Other long term (current) drug therapy; W23.0XXA Caught, crushed, jammed, or pinched between moving objects, initial encounter; Y93.89 Activity, other specified; Y92.89 Other specified places as the place of occurrence of the external cause; Y99.8 Other external cause status
CPT/HCPCS: 12002; 73130; 90471; 90715; 96365; 96367; 99284; J0696; J2543

== ENCOUNTER → 2024-01-10 | Outpatient (CLI) | payer OTHER ==
[~2024-01-10] MED LIST changes: +ACET-1881 PO; +AMLO1TAB23 PO; +ASPI1TAB19 PO; +CHOL10009 PO; +CLIN-203 PO; +CLOP75TA28 PO; +DIPH-753 PO; +MAGN400T40 PO; +PATI1POW PO
[2024-01-10 09:00] VITALS: BP 146/64; PULSE 82; RESP 16; O2SAT 97
[2024-01-10 09:14] VITALS: BP 137/63; PULSE 75; RESP 16; O2SAT 97
== END | disposition home or self-care (01) ==
LOC: Rad HDHVI 08:42
PROVIDERS: ATTEND Internal Medicine Cardiovascular Disease
DX: Z01.818 Encounter for other preprocedural examination (principal); I25.5 Ischemic cardiomyopathy; I50.1 Left ventricular failure, unspecified
CPT/HCPCS: 71046; 93005; G0463

== ENCOUNTER 2024-01-13 06:45 | Day surgery (SDC) | payer OTHER, MEDICAID ==
[2024-01-10 11:35] LABS: Basophils # (auto) 0.1 10 ^3/uL (0-0.2); Basophils % (auto) 0.9 % (0.0-2.0); Eosinophils # (auto) 0.3 10 ^3/uL (0-0.8); Eosinophils % (auto) 3.9 % (0.0-7.0); Hematocrit 41.1 % (36.0-46.0); Lymphocytes # (auto) 1.6 10 ^3/uL (0.4-5.4); Lymphocytes % (auto) 20.5 % (10.0-50.0); Mean Corpuscular Hemoglobin 28.2 pg (28.0-32.0); Mean Corpuscular Hgb Conc. 34.1 g/dL (32.0-36.0); Mean Corpuscular Volume 82.6 fL (80.0-100.0); Monocytes # (auto) 0.6 10 ^3/uL (0-1.3); Monocytes % (auto) 7.8 % (0.0-12.0); Neutrophils # (auto) 5.3 10 ^3/uL (1.6-8.6); Neutrophils % (auto) 66.9 % (37.0-80.0); Nucleated Red Blood Cells % 0.1 %; Red Blood Cells 4.98 10^6/uL (4.0-5.20); Red Cell Distribution Width 14.3 % (11.8-14.3)
[2024-01-10 11:50] LABS: Partial Thromboplastin Time 25.7 SEC (24.5-34.5); Prothrombin Time 10.6 sec (9.3-11.8)
[2024-01-10 11:53] LABS: Chloride 108 mmol/L (98-107); Potassium 4.1 mmol/L (3.5-5.1); Sodium 139 mmol/L (136-145)
[2024-01-10 11:54] LABS: Anion Gap 8 (5-15); Carbon Dioxide 23 mmol/L (20-30)
[2024-01-10 11:55] LABS: Calcium 9.9 mg/dL (8.7-10.4)
[2024-01-10 11:59] LABS: BUN/Creatinine Ratio 14.5 (10.0-20.0); Blood Urea Nitrogen 22 mg/dL (9-23); Glucose 99 mg/dL (74-106)
[2024-01-13] VITALS (7 sets, daily range): BP systolic 93–125; BP diastolic 43–68; PULSE 68–78; RESP 15–19; TEMP 98; O2SAT 95–99
[~2024-01-13] VITALS: Ht 165.1 cm; Wt 67.1 kg
[~2024-01-13 06:45] MED LIST changes: -AMLO1TAB23 PO; -ASPI1TAB19 PO; -CHOL10009 PO; -CLIN-203 PO
[2024-01-13] MEDS ORDERED: LIDOCAINE 2%HCL (LOCAL ANESTH.) INJ 20ML MDV ONE (07:40)
[2024-01-13] MEDS ORDERED: IOHEXOL 350 MG/ML 100ML IJ ONE ×2 (07:40→08:40)
[2024-01-13] MEDS ORDERED: HEPARIN IN NS 1000Units/500mL 1,500 ML ONE (07:41)
[2024-01-13] MEDS ORDERED: fentaNYL CITRATE 100 MCG/2 ML VL ONE (08:29)
[2024-01-13] MEDS ORDERED: ANGIOMAX 250 MG VIAL IV ONE (08:29)
[2024-01-13] MEDS ORDERED: SODIUM CHL 0.9% 50 ML ONE (08:30)
[2024-01-13] MEDS ORDERED: MIDAZOLAM HCL 2MG/2ML 2ml VIAL (1mg/ml) ONE (08:30)
[2024-01-13] MEDS ORDERED: AMLO1TAB23 PO (10:00)
[2024-01-13] MEDS ORDERED: ASPI1TAB19 PO (10:00)
[2024-01-13] MEDS ORDERED: CHOL10009 PO (10:00)
== END 2024-01-13 11:32 | disposition home or self-care (01) ==
LOC: CATH 06:45
PROVIDERS: ATTEND Internal Medicine Cardiovascular Disease
DX: R94.39 Abnormal result of other cardiovascular function study (principal); I25.10 Atherosclerotic heart disease of native coronary artery without angina pectoris; I25.84 Coronary atherosclerosis due to calcified coronary lesion; I25.5 Ischemic cardiomyopathy; I49.5 Sick sinus syndrome; I11.0 Hypertensive heart disease with heart failure; I50.9 Heart failure, unspecified; E78.5 Hyperlipidemia, unspecified; I25.2 Old myocardial infarction; Z79.82 Long term (current) use of aspirin; Z95.810 Presence of automatic (implantable) cardiac defibrillator; Z88.5 Allergy status to narcotic agent
CPT/HCPCS: 36415; 80048; 85025; 85610; 85730; 92972; 93458; C1725; C1760; C1769; C1874; C1887; C1894; C9600; J0583; J1644; J2250; J3010; J7030; Q9967; 99152; 99153

== ENCOUNTER 2025-02-05 08:46 | Outpatient (CLI) | payer OTHER, MEDICAID ==
[~2025-02-05 08:46] MED LIST changes: -AMLO1TAB22 PO; +AMLO1TAB23 PO; -ASPI-394 PO; +ASPI1TAB19 PO; +CHOL10009 PO; -CHOL20007 PO
== END 2025-02-05 17:00 | disposition home or self-care (01) ==
LOC: Rad HDHVI 08:46
PROVIDERS: ATTEND Internal Medicine Cardiovascular Disease
DX: I08.2 Rheumatic disorders of both aortic and tricuspid valves (principal); Z95.0 Presence of cardiac pacemaker
CPT/HCPCS: 93306

== ENCOUNTER 2025-02-06 09:13 | Outpatient (CLI) | payer OTHER, MEDICAID ==
[~2025-02-06] VITALS: Ht 165.1 cm; Wt 62.6 kg
[2025-02-06] MEDS ORDERED: ADENOSINE 90 MG/30 ML INJ IV ONE (09:43)
[2025-02-06] MEDS ORDERED: ADENOSINE 53 MG in GIVE UN-DILUTED 0 ML IV ONE (09:45)
== END 2025-02-06 17:00 | disposition home or self-care (01) ==
LOC: Rad HDHVI 09:13
PROVIDERS: ATTEND Internal Medicine Cardiovascular Disease
DX: I49.1 Atrial premature depolarization (principal); I49.3 Ventricular premature depolarization; I45.10 Unspecified right bundle-branch block; I44.0 Atrioventricular block, first degree; I25.10 Atherosclerotic heart disease of native coronary artery without angina pectoris; I11.0 Hypertensive heart disease with heart failure; I50.33 Acute on chronic diastolic (congestive) heart failure; I42.0 Dilated cardiomyopathy; I25.5 Ischemic cardiomyopathy; E78.00 Pure hypercholesterolemia, unspecified; I25.2 Old myocardial infarction; E11.9 Type 2 diabetes mellitus without complications; Z95.810 Presence of automatic (implantable) cardiac defibrillator; Z95.820 Peripheral vascular angioplasty status with implants and grafts; Z88.5 Allergy status to narcotic agent; Z79.82 Long term (current) use of aspirin
CPT/HCPCS: 78452; 93017; A9500; J0153